=== PATIENT | female | born 1960 | race Hispanic/Latino ===

== ENCOUNTER 2019-01-08 10:55 | Emergency (ER) | payer MEDICAID ==
[2019-01-08 11:43] LABS: BASOPHILS % (AUTO) 0.8 % (0.0-5.0); EOSINOPHILS % (AUTO) 0.5 % (0.0-8.0); LYMPHOCYTES % (AUTO) 10.8 % (21.0-51.0); MEAN CORPUSCULAR HEMOGLOBIN 29.2 pg (27.0-33.0); MEAN CORPUSCULAR HGB CONC 33.6 g/dL (32.0-36.0); MEAN CORPUSCULAR VOLUME 86.9 fL (79-99); MONOCYTES % (AUTO) 6.2 % (3.0-13.0); NEUTROPHILS % (AUTO) 81.7 % (40.0-77.0); NUCLEATED RED BLOOD CELLS 0.1 % (0.0-0.19); PLATELET COUNT (AUTO) 292 K/uL (130-400); RED BLOOD CELL COUNT(AUTO) 4.83 MIL/uL (4.00-5.50); RED CELL DISTRIBUTION WIDTH 13.1 % (11.0-15.5); WHITE BLOOD COUNT (AUTO) 6.7 K/uL (4.8-10.8)
[2019-01-08 11:48] LABS: CREATININE 0.5 mg/dL (0.5-1.5); POTASSIUM 3.7 mmol/L (3.5-5.1)
[2019-01-08 11:52] LABS: ALBUMIN 3.2 g/dL (3.5-5.0); BILIRUBIN,TOTAL 0.6 mg/dL (0.2-1.0); TOTAL PROTEIN, SERUM 7.6 g/dL (6.0-8.3)
[2019-01-08 12:06] LABS: INR 0.96 (0.85-1.15); PARTIAL THROMBOPLASTIN TIME 29.6 SEC (26.3-35.5); PROTHROMBIN TIME 10.1 SEC (9.6-11.6)
[2019-01-08 14:44] LABS: APPEARANCE,URINE Clear (CLEAR); BILIRUBIN,URINE Negative (NEGATIVE); COLOR,URINE Yellow (YELLOW); GLUCOSE, URINE (UA) Negative (NEGATIVE); KETONES,URINE Negative (NEGATIVE); LEUKOCYTE ESTERASE ,URINE Moderate (NEGATIVE); NITRATE,URINE Positive (NEGATIVE); OCCULT BLOOD,URINE Negative (NEGATIVE); PH,URINE 6.5 (5.0-8.0); PROTEIN,URINE Negative (NEGATIVE); UROBILINOGEN,URINE 0.2 mg/dL (0.2-1.0)
[2019-01-08 15:01] LABS: BACTERIA,URINE Moderate /HPF (None Seen); RBC,URINE 0-1 /HPF (0-1); SQUAMOUS EPITHELIAL CELL,UR Few /HPF (0-2)
== END 2019-01-08 16:41 | disposition home or self-care (01) ==
LOC: EDH 10:55
DX: R07.89 Other chest pain (principal); N39.0 Urinary tract infection, site not specified; R42 Dizziness and giddiness; Z98.890 Other specified postprocedural states
CPT/HCPCS: 36415; 71045; 80053; 81001; 82550; 84484; 85025; 85610; 85730; 93005

== ENCOUNTER 2022-02-11 03:31 | Emergency (ER) | payer MEDICAID ==
[~2022-02-11] VITALS: Ht 152.4 cm; Wt 55.3 kg
[2022-02-11 04:27] LABS: EOSINOPHILS % (AUTO) 1.9 % (0.0-8.0); HEMATOCRIT 38.7 % (36-48); LYMPHOCYTES % (AUTO) 17.5 % (21.0-51.0); MEAN CORPUSCULAR HEMOGLOBIN 29.3 pg (27.0-33.0); MEAN CORPUSCULAR HGB CONC 33.3 g/dL (32.0-36.0); MEAN CORPUSCULAR VOLUME 87.8 fL (79-99); MONOCYTES % (AUTO) 9.9 % (3.0-13.0); NEUTROPHILS % (AUTO) 69.4 % (40.0-77.0); PLATELET COUNT (AUTO) 238 K/uL (130-400); RED BLOOD CELL COUNT(AUTO) 4.41 MIL/uL (4.00-5.50); RED CELL DISTRIBUTION WIDTH 12.4 % (11.0-15.5); WHITE BLOOD COUNT (AUTO) 7.2 K/uL (4.8-10.8)
[2022-02-11 04:36] LABS: CREATININE 0.7 mg/dL (0.5-1.5); POTASSIUM 3.7 mmol/L (3.5-5.1)
[2022-02-11 04:40] LABS: ALBUMIN 3.3 g/dL (3.5-5.0); TOTAL PROTEIN, SERUM 7.5 g/dL (6.0-8.3)
[2022-02-11 06:00] VITALS: BP 143/78
== END 2022-02-11 06:16 | disposition home or self-care (01) ==
LOC: EDH 03:31
DX: R07.89 Other chest pain (principal); I10 Essential (primary) hypertension
CPT/HCPCS: 36415; 71045; 80053; 84484; 85025; 93005

== ENCOUNTER 2022-08-12 16:28 | Emergency (ER) | payer MEDICAID ==
[~2022-08-12] VITALS: Ht 152.4 cm; Wt 54.4 kg
[2022-08-12] MEDS ORDERED: MORPHINE 2 MG SYG IVP ONE (19:00)
[2022-08-12] MEDS ORDERED: PANTOPRAZOLE 40 MG/VIAL IVP ONE (19:00)
[2022-08-12] MEDS ORDERED: 0.9%NACL 1000ML 1,000 ML IV ONE (19:00)
[2022-08-12] MEDS ORDERED: ONDANSETRON 4MG INJ IVP ONE (19:00)
[2022-08-12 19:15] LABS: BASOPHILS % (AUTO) 0.8 % (0.0-5.0); EOSINOPHILS % (AUTO) 1.4 % (0.0-8.0); HEMATOCRIT 43.7 % (36-48); LYMPHOCYTES % (AUTO) 20.2 % (21.0-51.0); MEAN CORPUSCULAR HEMOGLOBIN 28.6 pg (27.0-33.0); MEAN CORPUSCULAR HGB CONC 32.3 g/dL (32.0-36.0); MEAN CORPUSCULAR VOLUME 88.6 fL (79-99); MONOCYTES % (AUTO) 9.8 % (3.0-13.0); NEUTROPHILS % (AUTO) 67.5 % (40.0-77.0); PLATELET COUNT (AUTO) 255 K/uL (130-400); RED BLOOD CELL COUNT(AUTO) 4.93 MIL/uL (4.00-5.50); RED CELL DISTRIBUTION WIDTH 12.4 % (11.0-15.5); WHITE BLOOD COUNT (AUTO) 6.5 K/uL (4.8-10.8)
[2022-08-12] MEDS ORDERED: PANTOPRAZOLE 40 MG/VIAL ONE (19:19)
[2022-08-12] MEDS ORDERED: ONDANSETRON 4MG INJ ONE (19:19)
[2022-08-12] MEDS ORDERED: MORPHINE 2 MG SYG ONE (19:19)
[2022-08-12 19:25] LABS: CREATININE 0.5 mg/dL (0.5-1.5); POTASSIUM 3.5 mmol/L (3.5-5.1)
[2022-08-12 19:34] LABS: ALBUMIN 4.1 g/dL (3.5-5.0); TOTAL PROTEIN, SERUM 8.5 g/dL (6.0-8.3)
[2022-08-12] MEDS ORDERED: IOHEXOL-350 75 ML VIAL IV ONE (19:52)
[2022-08-12 20:07] LABS: APPEARANCE,URINE CLEAR (CLEAR); BILIRUBIN,URINE NEGATIVE (NEGATIVE); COLOR,URINE LIGHT-YELLOW (YELLOW); GLUCOSE, URINE (UA) NEGATIVE (NEGATIVE); KETONES,URINE 10 mg/dL (NEGATIVE); LEUKOCYTE ESTERASE ,URINE 500 Leu/uL (NEGATIVE); NITRATE,URINE NEGATIVE (NEGATIVE); OCCULT BLOOD,URINE NEGATIVE (NEGATIVE); PH,URINE 5.5 (5.0-8.0); PROTEIN,URINE NEGATIVE (NEGATIVE); UROBILINOGEN,URINE 0.2 mg/dL (0.2-1.0)
[2022-08-12 20:18] LABS: BACTERIA,URINE RARE /HPF (None Seen); MUCUS,URINE RARE LPF (None Seen); RBC,URINE 0-1 /HPF (0-1); SQUAMOUS EPITHELIAL CELL,UR RARE /HPF (0-2)
[2022-08-12] MEDS ORDERED: DICY20TA2 PO (21:15)
[2022-08-12] MEDS ORDERED: PANT40TA54 PO (21:15)
[2022-08-12] MEDS ORDERED: CEPH500C2 PO (21:15)
[2022-08-12] MEDS ORDERED: ACET-66 PO (21:15)
[2022-08-12 21:40] VITALS: BP 142/70
== END 2022-08-12 21:44 | disposition home or self-care (01) ==
LOC: EDH 16:28
DX: K29.00 Acute gastritis without bleeding (principal); N39.0 Urinary tract infection, site not specified; I10 Essential (primary) hypertension; K57.30 Diverticulosis of large intestine without perforation or abscess without bleeding; M19.90 Unspecified osteoarthritis, unspecified site; Z98.890 Other specified postprocedural states
CPT/HCPCS: 99285; 74177; 96374; 71045; 96375; 84484; 80053; 83690; 85025; 87088; 81001; 36415; 93005; J2405; Q9967; S0164; C9113

== ENCOUNTER 2022-10-01 05:04 | Emergency (ER) | payer MEDICAID ==
[~2022-10-01] VITALS: Ht 147.3 cm; Wt 54.4 kg
[~2022-10-01 05:04] MED LIST: ACET-66 PO; CEPH500C2 PO; DICY20TA2 PO; PANT40TA54 PO
[2022-10-01] MEDS ORDERED: KETOROLAC 60 MG VIAL (30MG/ML) IM ONE (06:30)
[2022-10-01] MEDS ORDERED: ACYC400T20 PO (06:33)
[2022-10-01 06:36] VITALS: BP 115/60
== END 2022-10-01 06:44 | disposition home or self-care (01) ==
LOC: EDH 05:04
DX: K14.9 Disease of tongue, unspecified (principal); I10 Essential (primary) hypertension; Z79.899 Other long term (current) drug therapy
CPT/HCPCS: 99283; 96372; J1885

== ENCOUNTER 2023-01-16 21:14 | Emergency (ER) | payer MEDICAID ==
[~2023-01-16] VITALS: Ht 149.9 cm; Wt 54.4 kg
[~2023-01-16 21:14] MED LIST changes: +ACYC400T20 PO
[2023-01-16] MEDS ORDERED: ASPIRIN 81MG CHEW TAB PO ONE (21:30)
[2023-01-16 21:45] LABS: BASOPHILS # (AUTO) 0.02 K/uL (0.00-0.20); BASOPHILS % (AUTO) 0.2 % (0.0-5.0); EOSINOPHILS # (AUTO) 0.02 K/uL (0.00-0.70); EOSINOPHILS % (AUTO) 0.2 % (0.0-8.0); HEMATOCRIT 41.5 % (36-48); IMMATURE GRANULOCYTE ABSOLUTE 0.02 K/uL (0-1); LYMPHOCYTES # (AUTO) 1.2 K/uL (1.0-4.8); LYMPHOCYTES % (AUTO) 11.6 % (21.0-51.0); MEAN CORPUSCULAR HEMOGLOBIN 29.7 pg (27.0-33.0); MEAN CORPUSCULAR HGB CONC 32.5 g/dL (32.0-36.0); MEAN CORPUSCULAR VOLUME 91.2 fL (79-99); MONOCYTES # (AUTO) 0.1 K/uL (0.1-1.0); MONOCYTES % (AUTO) 1.2 % (3.0-13.0); NEUTROPHILS # (AUTO) 9.1 K/uL (1.8-7.7); NEUTROPHILS % (AUTO) 86.6 % (40.0-77.0); PLATELET COUNT (AUTO) 258 K/uL (130-400); RED BLOOD CELL COUNT(AUTO) 4.55 MIL/uL (4.00-5.50); RED CELL DISTRIBUTION WIDTH 12.8 % (11.0-15.5); WHITE BLOOD COUNT (AUTO) 10.5 K/uL (4.8-10.8)
[2023-01-16 22:00] LABS: CREATININE 0.7 mg/dL (0.5-1.5); POTASSIUM 3.1 mmol/L (3.5-5.1)
[2023-01-16 22:04] LABS: ALBUMIN 3.6 g/dL (3.5-5.0); BILIRUBIN,TOTAL 0.6 mg/dL (0.2-1.0); TOTAL PROTEIN, SERUM 7.7 g/dL (6.0-8.3)
[2023-01-16 22:10] LABS: B-TYPE NATRIURETIC PEPTIDE 8 pg/mL (0-100)
[2023-01-16 22:49] LABS: SARS-CoV-2, RNA, NAAT NEGATIVE SARS CoV-2 (NEGATIVE)
[2023-01-16 22:53] LABS: INFLUENZA TYPE A Negative For Type A (NEGATIVE); INFLUENZA TYPE B Negative For Type B (NEGATIVE)
[2023-01-16] MEDS ORDERED: KCL 20 MEQ ERTAB PO ONE (23:00)
[2023-01-16] MEDS ORDERED: AZIT500T4 PO (23:05)
[2023-01-16] MEDS ORDERED: ONDA-104 PO (23:29)
[2023-01-16] MEDS ORDERED: 0.9%NACL 1000ML 1,000 ML IV ONE (23:30)
[2023-01-16] MEDS ORDERED: ONDANSETRON 4MG INJ IVP ONE (23:30)
[2023-01-16] MEDS ORDERED: CEFTRIAXONE 1G VIAL IVPB ONE (23:30)
[2023-01-16] MEDS ORDERED: AZITHROMYCIN 250 MG TABLET PO ONE (23:30)
[2023-01-16 23:34] VITALS: BP 138/77; PULSE 99; RESP 18; O2SAT 97
== END 2023-01-16 23:38 | disposition home or self-care (01) ==
LOC: EDH 21:14
DX: J18.9 Pneumonia, unspecified organism (principal); E87.6 Hypokalemia; I10 Essential (primary) hypertension; Z79.624 Long term (current) use of inhibitors of nucleotide synthesis; Z79.899 Other long term (current) drug therapy; Z20.822 Contact with and (suspected) exposure to COVID-19
CPT/HCPCS: 99285; 96374; 71045; 87635; 96375; 80061; 84484; 80053; 83880; 85025; 87804 ×2; 36415; 93005; C9803; J7030; J0696; J2405